=== PATIENT | female | born 1945 | race African-American/Black ===

== ENCOUNTER 2021-09-05 12:33 | Emergency (ER) | payer BC, OTHER ==
[~2021-09-05] VITALS: Ht 175.3 cm; Wt 85.7 kg
[~2021-09-05 12:33] MED LIST: FLUT1DIS IH; METF-379 PO; PROAIR
[2021-09-05 12:39] VITALS: BP_SYST 137
--- NOTE | 2021-09-05 12:51 | NUR ---
Patient to ER bed 03 to gown for evaluation. Side rails up.
--- NOTE | 2021-09-05 13:06 | NUR ---
Pt presents to the ER BIB self from home. CC EYE pain. PS 3/10. Left eye sclera is reddenned. no drainage. Pt states was bending down cleaning two hours ago when felt pressure to the left eye and redness presented. No signs of trauma, pt is aaox4, skin intact. PMHx HTN Diabetes TAVR
--- NOTE | 2021-09-05 13:24 | NUR ---
Pt notes oxygen 2 liters used in home. Pt saturates at 90% gave 2 liters o2 via nasal canula.
[2021-09-05] MEDS ORDERED: FLUORESCEIN SODIUM 1 MG OPHTHALMIC STRIP OP ONE (13:45)
[2021-09-05] MEDS ORDERED: TETRACAINE HCL/PF 0.5% OPHTHALMIC DROPS 4 ML OP ONE (13:45)
--- NOTE | 2021-09-05 14:00 | NUR ---
pt with bs for MSE
[2021-09-05] MEDS ORDERED: MINE3.5O44 OP (14:19)
[2021-09-05] MEDS ORDERED: POLY15DR31 LEFT EYE (14:19)
[2021-09-05] MEDS ORDERED: OFLO5DRO6 LEFT EYE (14:19)
--- NOTE | 2021-09-05 14:35 | NUR ---
Patient given written and verbal discharge instructions and verbalizes understanding. ER MD discussed with patient the results and treatment provided. Patient in stable condition. ID arm band removed. IV catheter removed intact and dressing applied, no active bleeding. Rx of artificial eye lube, ocuflox, and polyninyl alcohol given. Patient educated on pain management and to follow up with PMD. Opportunity for questions provided and answered. Medication side effect fact sheet provided.
[2021-09-05 14:36] VITALS: BP_SYST 148
== END 2021-09-05 14:35 | disposition home or self-care (01) ==
LOC: SED 12:33
DX: H11.32 Conjunctival hemorrhage, left eye (principal); E11.9 Type 2 diabetes mellitus without complications; Z88.1 Allergy status to other antibiotic agents; Z79.899 Other long term (current) drug therapy
CPT/HCPCS: 99283